=== PATIENT | female | born 1975 | race American Indian/Alaskan Native ===

== ENCOUNTER 2017-08-28 08:30 | Day surgery (SDC) | payer BC, OTHER ==
[2017-08-20 14:41] VITALS: BMI 36.0
[2017-08-28] MEDS ORDERED: Propofol 10 mg/ml Inj (20 ML) ONE (11:55)
[2017-08-28] MEDS ORDERED: Lactated Ringer's 1,000 ML IV SCH (12:15)
[2017-08-28] MEDS ORDERED: Naloxone 0.4 mg/ml Inj (Adult) ONE (12:21)
[2017-08-28 13:17] VITALS: O2SAT 99
[2017-08-28 13:50] VITALS: BP 127/75; PULSE 73; RESP 18; TEMP 97.9
== END 2017-08-28 17:00 | disposition home or self-care (01) ==
LOC: ENDO 08:30
PROVIDERS: ATTEND Internal Medicine Gastroenterology
DX: K29.50 Unspecified chronic gastritis without bleeding (principal); K31.84 Gastroparesis
CPT/HCPCS: 43239; 84703; 88305; 88342; J2001; J2310; J2704; J3010; J7040; J7120